=== PATIENT | female | born 1980 | race Caucasian/White ===

== ENCOUNTER → 2019-01-02 | Outpatient (CLI) | payer BC ==
--- NOTE | 2019-01-02 12:00 | REP ---
Right hand four views : There is no fracture or dislocation. Mineralization and joint spaces are normal. There are no calcifications or foreign bodies. Impression: Negative right hand . Electronically Signed by Jose Manuel Moon MD 01/02/2019 11:52 A
== END ==
LOC: M SMT 11:28
PROVIDERS: ATTEND Physician Assistant
DX: M79.641 Pain in right hand (principal)

== ENCOUNTER → 2021-03-13 | Outpatient (CLI) | payer BC ==
--- NOTE | 2021-03-13 16:07 | REP ---
INDICATION: LEFT BREAST ADD VIEWS. COMPARISON: Multiple the latest prior screening examination 01/21/2021 TECHNIQUE: Diagnostic digital magnified spot compression views of the left breast were obtained in CC and MLO projections. FINDINGS: The area of interest seen in left breast has compressed out to normal breast parenchyma. No abnormalities are noted. IMPRESSION: There is no evidence of malignant alteration of the left breast. ACR category 2 benign left mammogram. Routine bilateral screening mammography is recommended at its regularly schedule annual interval. M1 letter. RECOMMENDATION: As above <Electronically signed by Geovanni Forbes > 03/13/21 [id number]
== END ==
LOC: M WHC 14:56
PROVIDERS: ATTEND Obstetrics & Gynecology
DX: R92.2 Inconclusive mammogram (principal)

== ENCOUNTER → 2021-07-31 | Outpatient (REF) | payer BC | LOC: M LAB REF 17:19 | PROVIDERS: ATTEND Physician Assistant | DX: D23.4 Other benign neoplasm of skin of scalp and neck (principal) ==

== ENCOUNTER → 2022-11-24 | Outpatient (CLI) | payer OTHER ==
[2022-11-24 12:18] LABS: BASO % 0.6 % (0.0-1.0); EOS # 0.1 10^3/uL (0.0-0.5); EOS % 1.7 % (0.0-3.0); HEMATOCRIT 42.3 % (36.0-47.0); HEMOGLOBIN 13.6 g/dl (12.0-15.5); LYMPH # 1.5 10^3/uL (1.5-5.0); LYMPH % 27.3 % (24.0-44.0); MEAN CORPUSCULAR HEMOGLOBIN 28.3 pg (27.0-33.0); MEAN CORPUSCULAR HGB CONC 32.2 g/dl (32.0-36.5); MEAN CORPUSCULAR VOLUME 87.9 fl (80.0-96.0); MONO # 0.6 10^3/uL (0.0-0.8); MONO % 10.4 % (2.0-8.0); NEUTROPHILS # 3.2 10^3/uL (1.5-8.5); NEUTROPHILS % 59.8 % (36.0-66.0); PLATELET COUNT, AUTOMATED 302 10^3/uL (150-450); RED BLOOD COUNT 4.81 10^6/uL (4.00-5.40); WHITE BLOOD COUNT 5.4 10^3/uL (4.0-10.0)
[2022-11-24 12:41] LABS: LIPASE 23 U/L (12-53)
[2022-11-24 12:43] LABS: ALKALINE PHOSPHATASE 70 U/L (46-116); ALT/SGPT 18 U/L (7.0-40); AST/SGOT 19 U/L (<34); BILIRUBIN,DIRECT 0.1 MG/DL (<0.4); BILIRUBIN,TOTAL 0.4 MG/DL (0.3-1.2); BLOOD UREA NITROGEN 18 MG/DL (9-23); CARBON DIOXIDE LEVEL 27 MMOL/L (20-31); CHLORIDE LEVEL 107 MMOL/L (98-107); CREATININE FOR GFR 0.84 MG/DL (0.55-1.30); GLOMERULAR FILTRATION RATE > 60.0 (>58); GLUCOSE, FASTING 83 MG/DL (60-100); POTASSIUM SERUM 4.2 MMOL/L (3.5-5.1); SODIUM LEVEL 141 MMOL/L (136-145)
== END ==
LOC: M RAD 11:27
PROVIDERS: ATTEND Physician Assistant
DX: R10.11 Right upper quadrant pain (principal); Q44.6 Cystic disease of liver; N20.2 Calculus of kidney with calculus of ureter

== ENCOUNTER 2025-04-10 08:08 | Day surgery (SDC) | payer OTHER ==
[~2025-04-10] VITALS: Ht 172.7 cm; Wt 92.4 kg
[~2025-04-10 08:08] MED LIST: ERGO500029 PO; SPIR100T3 PO
[2025-04-10] MEDS ORDERED: LIDOCAINE 2% 100 MG/5 ML SDV (FOR ANES.) As Ordered ONE (08:37)
[2025-04-10 09:13] VITALS: TEMP 97.1
[2025-04-10] MEDS ORDERED: ONDANSETRON 4MG 2ML VIAL As Ordered ONE (09:18)
[2025-04-10 09:35] VITALS: BP 121/67; O2SAT 98
== END 2025-04-10 09:41 | disposition home or self-care (01) ==
LOC: M OPP 08:08
PROVIDERS: ATTEND Surgery
DX: Z12.11 Encounter for screening for malignant neoplasm of colon (principal); K64.0 First degree hemorrhoids; K44.9 Diaphragmatic hernia without obstruction or gangrene; K29.70 Gastritis, unspecified, without bleeding; R10.13 Epigastric pain; Z79.899 Other long term (current) drug therapy
CPT/HCPCS: 43235; 45378; J2405; J3010